=== PATIENT | female | born 2000 | race Caucasian/White ===

== ENCOUNTER 2018-07-16 13:28 | Emergency (ER) | payer BC, OTHER ==
[~2018-07-16] VITALS: Ht 160 cm; Wt 63.9 kg
[2018-07-16 13:37] VITALS: BP 115/74
--- NOTE | 2018-07-16 15:52 | NUR ---
ERP at bedside.
[2018-07-16] MEDS ORDERED: CEFTRIAXONE 250 MG IM ONE (16:00)
[2018-07-16] MEDS ORDERED: AZITHROMYCIN 250 MG TABLET PO ONE (16:00)
[2018-07-16] MEDS ORDERED: CEFTRIAXONE 250 MG ONE (16:08)
[2018-07-16] MEDS ORDERED: AZITHROMYCIN 250 MG TABLET ONE (16:08)
[2018-07-16 16:09] LABS: HCG UR SG 1.009 (1.003-1.030); MICROSCOPIC NOT IND
[2018-07-16 16:14] LABS: CULTURE INDICATED? NO
[2018-07-16 16:54] LABS: CLUE CELLS NONE SEEN (NONE SEEN); WET PREP WBCS FEW (FEW)
--- NOTE | 2018-07-16 17:19 | NUR ---
Patient/Caregiver given discharge instructions and they have confirmed that they understand the instructions. Patient ambulatory with steady gait.
== END 2018-07-16 17:19 | disposition home or self-care (01) ==
LOC: ED 16:35
DX: A56.02 Chlamydial vulvovaginitis (principal); A54.02 Gonococcal vulvovaginitis, unspecified
CPT/HCPCS: 81003; 81025; 87210; 87491; 87591; 87808; 96372; 99283; J0696

== ENCOUNTER 2018-11-21 13:47 | Emergency (ER) | payer BC, OTHER ==
[~2018-11-21] VITALS: Ht 160 cm; Wt 63.5 kg
[2018-11-21 15:56] VITALS: BP 126/83
== END 2018-11-21 17:59 | disposition home or self-care (01) ==
LOC: ED 15:58
DX: A59.01 Trichomonal vulvovaginitis (principal)
CPT/HCPCS: 81003; 81025; 87210; 87491; 87591; 87808; 96372; 99283; J0696